=== PATIENT | female | born 1990 | race Caucasian/White ===

== ENCOUNTER → 2024-11-30 | Outpatient (CLI) | payer MEDICAID, SELFPAY ==
--- NOTE | 2024-11-30 13:00 | XR_ITS ---
Examination: CT soft tissue neck, with intravenous contrast. 2-D coronal reconstructions. 2-D sagittal reconstructions. Date and time of exam :November 30, 2024 1308 hours INDICATIONS: Pain one year CTDI: vol (mGy):11.6 DLP: (mGycm):324 Technique: 1.25 mm axial sections of the neck of the obtained. Coronal and sagittal reconstructions have been obtained. Intravenous contrast administered 50 cc [id number]. Low dose protocols were performed. One or more of the following dose reduction techniques were used; automated exposure control, adjustment of the mA and/or KV according to patient size, use of iterative reconstruction technique. Findings: Maxillary antra are clear Symmetrical nasopharynx oropharynx Posterior carotid triangle lymph nodes, the largest on the right side 9 mm on the left side 8 mm Submental lymph nodes, the largest on the right side 9 mm The larynx appears normal No thyroid nodules Normal epiglottis IMPRESSION: Cervical lymphadenopathy as above, with this study is baseline recommend 6 month follow-up CT soft tissue neck post contrast
== END | disposition home or self-care (01) ==
LOC: SCAT 12:21
PROVIDERS: PCP Physician Assistant; Referring Provider Physician Assistant; Visit Provider Physician Assistant
DX: R59.0 Localized enlarged lymph nodes (principal)
CPT/HCPCS: 70491; A4649; Q9967